=== PATIENT | male | born 1975 | race Caucasian/White ===

== ENCOUNTER 2019-08-31 17:01 | Inpatient (IN) | payer OTHER ==
[2019-08-31 17:42] VITALS: BMI 25.5
--- NOTE | 2019-08-31 18:38 | BHS.RME ---
Substance Use & Tx History - Substance Use History Heroin Substance amount: 1 bundle Frequency of use: Daily Substance route: Injection (ex: intravenous or skin popping) (UE) - Last Treatment Date of last treatment: " a while ago " Where was last treatment: Detox Physical/Psych/Mental Status - Behavior Eye Contact: Normal - Cooperativeness Cooperativeness: Cooperative - Thinking Thought Processes: Logical - Physical Health Problems Is patient presently having any pain?: No Does patient presently have any injuries (include location): No Does patient currently have a fever: No COWS - Scale Resting Pulse: 0= [place] 80 or Below Sweatin= Chills/Flushing Restless Observation: 1= Difficult to Sit Still Pupil Size: 0= Normal to Room Light Bone or Joint Aches: 2= Severe Diffuse Aches Runny Nose/ Eye Tearin= Runny Nose/Eyes GI Upset > 30mins: 2= Nausea/Diarrhea Tremor Observation: 0= None Yawning Observation: 0= None Anxiety or Irritability: 2=Irritable/Anxious Goose Flesh Skin: 0=Smooth Skin COWS Score: 10
--- NOTE | 2019-08-31 18:42 | HP ---
COWS - Scale Resting Pulse: 0= [place] 80 or Below Sweatin= Chills/Flushing Restless Observation: 1= Difficult to Sit Still Pupil Size: 0= Normal to Room Light Bone or Joint Aches: 2= Severe Diffuse Aches Runny Nose/ Eye Tearin= Runny Nose/Eyes GI Upset > 30mins: 2= Nausea/Diarrhea Tremor Observation: 0= None Yawning Observation: 0= None Anxiety or Irritability: 2=Irritable/Anxious Goose Flesh Skin: 0=Smooth Skin COWS Score: 10 CIWA Score - Admission Criteria OASAS Guidelines: Admission for Medically Managed Detox: Requires at least one of the followin. CIWA greater than 12 2. Seizures within the past 24 hours 3. Delirium tremens within the past 24 hours 4. Hallucinations within the past 24 hours 5. Acute intervention needed for co occurring medical disorder 6. Acute intervention needed for co occurring psychiatric disorder 7. Severe withdrawal that cannot be handled at a lower level of care (continued vomiting, continued diarrhea, abnormal vital signs) requiring intravenous medication and/or fluids 8. Admitting History and Physical - Smoking History Smoking history: Current every day smoker Have you smoked in the past 12 months: Yes Aproximately how many cigarettes per day: 5 - Alcohol/Substance Use Hx Alcohol Use: Yes (drinks 4-5 dollar shots of vodka (with Xanax) once weekly) Admission ROS [facility] - HPI Allergies/Adverse Reactions: Allergies Allergy/AdvReac Type Severity Reaction Status Date / Time No Known Allergies Allergy Verified 08/31/19 19:12 History of Present Illness: 43 y.o. male requesting detox from heroin use , reports use x 5 years , latest use today 1 bag , daily use 1 bundle via IV in UE , needles from the exchange , denies sharing , occasional re-using , abscess in the past . OD x 3 most recently 2 mo ago , Narcan by EMS . MMTP - " long time ago " mtd - reports illicit use cocaine - 100 $ / day IV x 2-3 years PMHX : asthma since childhood , hospitalized , intubated in 2006 PSHX : denies PSych : denies Exam Limitations: Clinical Condition - Review of Systems Constitutional: Loss of Appetite EENT: reports: See HPI Respiratory: reports: See HPI Cardiac: reports: See HPI GI: reports: Nausea, Poor Appetite : reports: No Symptoms Reported Musculoskeletal: reports: Muscle Pain Integumentary: reports: See HPI Neuro: reports: No Symptoms reported Endocrine: reports: No Symptoms Reported Hematology: reports: No Symptoms Reported Psychiatric: reports: Orientated x3, Depressed Patient History - Patient Medical History Hx Anemia: No Hx Asthma: Yes Hx Chronic Obstructive Pulmonary Disease (COPD): No Hx Cancer: No Hx Cardiac Disorders: No Hx Congestive Heart Failure: No Hx Hypertension: No Hx Hypercholesterolemia: No HX Cerebrovascular Accident: No Hx Seizures: No Hx Diabetes: No Hx Gastrointestinal Disorders: No Hx Genitourinary Disorders: No Hx Sexually Transmitted Disorders: No Hx Renal Disease (ESRD): No Hx Thyroid Disease: No Hx Human Immunodeficiency Virus (HIV): No (NEGATIVE HX) Hx Hepatitis C: No Hx Depression: Yes Hx Suicide Attempt: No Hx Schizophrenia: No - Patient Surgical History Past Surgical History: No - Smoking Cessation Smoking history: Current every day smoker Have you smoked in the past 12 months: Yes Aproximately how many cigarettes per day: 5 Hx Chewing Tobacco Use: No Initiated information on smoking cessation: No - Substances abused Heroin Substance route: Injection Frequency: Daily Amount used: 10 bags Age of first use: 18 Date of last use: 08/30/19 Admission Physical Exam BHS - Vital Signs Vital Signs: Vital Signs - 24 hr 08/31/19 17:40 Temperature 97.2 F L Pulse Rate 67 Respiratory 18 Rate Blood Pressure 101/64 - Physical General Appearance: Yes: Disheveled, Moderate Distress, Irritable, Anxious HEENTM: Yes: EOMI, Hearing grossly Normal, Normocephalic, Normal Voice Respiratory: Yes: Decreased Breath Sounds, No Accessory Muscle Use, Wheezing (throuhgout lung davis) Neck: Yes: No masses,lesions,Nodules, Trachea in good position Cardiology: Yes: Regular Rhythm, Regular Rate, S1, S2 Abdominal: Yes: Non Tender, Soft Musculoskeletal: Yes: Gait Steady Extremities: Yes: Normal Range of Motion, Non-Tender Neurological: Yes: Alert, Motor Strength 5/5 Integumentary: Yes: Warm, Erythema (left hand), Track Ac - Diagnostic (1) Opioid dependence Current Visit: Yes Status: Chronic Qualifiers: Substance use status: uncomplicated Qualified Code(s): F11.20 - Opioid dependence, uncomplicated Breathalyzer - Breathalyzer Breathalyzer: 0 Urine Drug Screen - Test Device Lot number: [id number] Expiration date: 11/06/20 - Control Is test valid?: Yes - Results Drug screen NEGATIVE: No Urine drug screen results: ANGELINE-Cocaine, FEN-Fentanyl, MOP-Opiates, MTD-Methadone Inpatient Rehab Admission - Rehab Decision to Admit Inpatient rehab admission?: No
[2019-08-31] MEDS ORDERED: MENTHOL/PHENOL 1 EACH UD MM PRN (18:45)
[2019-08-31] MEDS ORDERED: IBUPROFEN 400 MG TABLET (FP) PO PRN (18:45)
[2019-08-31] MEDS ORDERED: BISMUTH SUBSALICYLATE 524 MG/30 ML UD PO PRN (18:45)
[2019-08-31] MEDS ORDERED: NICOTINE POLACRILEX 2 MG GUM BUC PRN (18:45)
[2019-08-31] MEDS ORDERED: ACETAMINOPHEN 325 MG TABLET (FP) PO PRN ×2 (18:45)
[2019-08-31] MEDS ORDERED: MAGNESIUM HYDROX 2400MG/30ML ORAL SUSPENSION 30 ML CUP PO PRN (18:45)
[2019-08-31] MEDS ORDERED: ALBUTEROL SO4 2.5/IPRATROPIUM 0.5 INH SOL 3 ML VIAL.NEB. NEB ONE (18:45)
[2019-08-31] MEDS ORDERED: MAG HYDROX/AL HYDROX/SIMETH 30 ML UNIT-DOSE CUP PO PRN (18:45)
[2019-08-31] MEDS ORDERED: MAGNESIUM CITRATE 300 ML BOTTLE PO PRN (18:45)
[2019-08-31] MEDS ORDERED: METHADONE HCL 10 MG TABLET (FOR DETOX USE ONLY) PO ONE ×2 (18:47→19:30)
[2019-08-31] MEDS ORDERED: ALBUTEROL SO4 0.083% IH SOL 2.5 MG/3 ML VIAL.NEB. NEB PRN (18:48)
[2019-08-31] MEDS: THIAMINE HCL 100 MG TABLET (FP) PO SCH (23:06)
[2019-08-31] MEDS: MELATONIN 5 MG TABLETS PO SCH (23:06)
[2019-08-31] MEDS: ALBUTEROL SO4 HFA INHALER IH SCH (23:06)
[2019-09-01] MEDS ORDERED: METHADONE HCL 10 MG TABLET (FOR DETOX USE ONLY) ONE (09:45)
[2019-09-01] MEDS ORDERED: METHADONE HCL 5 MG TABLET (FOR DETOX USE ONLY) ONE (09:45)
[2019-09-01] MEDS ORDERED: METHADONE (DETOX) 20 MG, METHADONE (DETOX) 5 MG PO ONE (10:00)
--- NOTE | 2019-09-01 10:11 | PN ---
BHS COWS - Scale Resting Pulse: 0= [place] 80 or Below Sweatin= No chills or Flushing Restless Observation: 1= Difficult to Sit Still Pupil Size: 1= Pupils >than Normal Bone or Joint Aches: 2= Severe Diffuse Aches Runny Nose/ Eye Tearin= Nasal Congestion GI Upset > 30mins: 2= Nausea/Diarrhea Tremor Observation of Outstretched Hands: 2= Slight Tremor Visible Yawning Observation: 2= >3x During Session Anxiety or Irritability: 2=Irritable/Anxious Goose Flesh Skin: 0=Smooth Skin COWS Score: 13 S Progress Note (SOAP) Subjective: alert,irritable,anxious,interrupted sleep,pain in the body,tremor,nausea Objective: 09/01/19 10:08 Vital Signs Temperature 97.7 F 09/01/19 08:55 Pulse Rate 74 09/01/19 08:55 Respiratory Rate 18 09/01/19 08:55 Blood Pressure 113/72 09/01/19 08:55 O2 Sat by Pulse Oximetry (%) 96 09/01/19 05:00 labs pending Assessment: 09/01/19 10:09 withdrawal symptom Plan: continue detox methadone regimen,valium 10 mgs po q 4hrs prn for 72 hrs
[2019-09-01 10:45] LABS: HEMATOCRIT 41.3 % (35.4-49); HEMOGLOBIN 13.5 GM/dL (11.7-16.9); MCHC 32.8 g/dl (32.0-35.9); MEAN CELL VOLUME 97.7 fl (80-96); MEAN PLT VOLUME 9.1 fl (7.5-11.1); PLATELET COUNT 219 K/MM3 (134-434); RBC 4.22 M/mm3 (4.00-5.60); RDW 12.7 % (11.9-15.9); WHITE BLOOD COUNT 6.6 K/mm3 (4.0-10.0)
[2019-09-01] MEDS: PRENATAL VITAMINS W/ FOLIC ACID TABLET (FP) PO SCH (10:57)
[2019-09-01 11:00] LABS: ALBUMIN 3.5 g/dl (3.4-5.0); CREATININE 0.9 mg/dL (0.55-1.3); POTASSIUM 4.1 mmol/L (3.5-5.1)
[2019-09-01] MEDS: ALBUTEROL SO4 HFA INHALER IH SCH ×4 (11:00→21:38)
[2019-09-01 11:02] LABS: BILIRUBIN,TOTAL 0.6 mg/dL (0.2-1); TOT PROT 6.5 g/dl (6.4-8.2)
[2019-09-01] MEDS: diazePAM 5 MG TABLET PO PRN ×2 (18:27→22:31)
[2019-09-01] MEDS: cloNIDine HCL 0.1 MG TABLET PO PRN (21:38)
[2019-09-01] MEDS: MELATONIN 5 MG TABLETS PO SCH (21:38)
[2019-09-01] MEDS: THIAMINE HCL 100 MG TABLET (FP) PO SCH (21:38)
[2019-09-02] MEDS: METHOCARBAMOL 500 MG TABLET PO PRN ×2 (00:33→10:05)
[2019-09-02] MEDS: diazePAM 5 MG TABLET PO PRN ×4 (02:33→22:18)
[2019-09-02] MEDS: cloNIDine HCL 0.1 MG TABLET PO PRN (05:07)
[2019-09-02] MEDS ORDERED: METHADONE HCL 10 MG TABLET (FOR DETOX USE ONLY) PO ONE (10:00)
[2019-09-02] MEDS: PRENATAL VITAMINS W/ FOLIC ACID TABLET (FP) PO SCH (10:03)
[2019-09-02] MEDS: ALBUTEROL SO4 HFA INHALER IH SCH ×4 (10:03→22:40)
--- NOTE | 2019-09-02 10:40 | PN ---
S COWS - Scale Resting Pulse: 0= RI 80 or Below Sweatin= No chills or Flushing Restless Observation: 1= Difficult to Sit Still Pupil Size: 1= Pupils >than Normal Bone or Joint Aches: 2= Severe Diffuse Aches Runny Nose/ Eye Tearin= Nasal Congestion GI Upset > 30mins: 2= Nausea/Diarrhea Tremor Observation of Outstretched Hands: 2= Slight Tremor Visible Yawning Observation: 1= 1-2x During Session Anxiety or Irritability: 2=Irritable/Anxious Goose Flesh Skin: 0=Smooth Skin COWS Score: 12 S Progress Note (SOAP) Subjective: alert,irritable,anxious,interrupted sleep,pain in the body and back,insomnia, Objective: 09/02/19 10:38 Vital Signs Temperature 97.7 F 09/02/19 08:41 Pulse Rate 79 09/02/19 08:41 Respiratory Rate 17 09/02/19 08:41 Blood Pressure 143/70 09/02/19 08:41 O2 Sat by Pulse Oximetry (%) 99 09/02/19 06:24 Laboratory Last Values WBC 6.6 K/mm3 (4.0-10.0) 09/01/19 08:00 RBC 4.22 M/mm3 (4.00-5.60) 09/01/19 08:00 Hgb 13.5 GM/dL (11.7-16.9) 09/01/19 08:00 Hct 41.3 % (35.4-49) 09/01/19 08:00 MCV 97.7 fl (80-96) H 09/01/19 08:00 MCH 32.0 pg (25.7-33.7) 09/01/19 08:00 MCHC 32.8 g/dl (32.0-35.9) 09/01/19 08:00 RDW 12.7 % (11.9-15.9) 09/01/19 08:00 Plt Count 219 K/MM3 (134-434) 09/01/19 08:00 MPV 9.1 fl (7.5-11.1) 09/01/19 08:00 Sodium 138 mmol/L (136-145) 09/01/19 08:00 Potassium 4.1 mmol/L (3.5-5.1) 09/01/19 08:00 Chloride 103 mmol/L (98-107) 09/01/19 08:00 Carbon Dioxide 28 mmol/L (21-32) 09/01/19 08:00 Anion Gap 7 MMOL/L (8-16) L 09/01/19 08:00 BUN 9.0 mg/dL (7-18) 09/01/19 08:00 Creatinine 0.9 mg/dL (0.55-1.3) 09/01/19 08:00 Est GFR (CKD-EPI)AfAm 121.67 09/01/19 08:00 Est GFR (CKD-EPI)NonAf 104.98 09/01/19 08:00 Random Glucose 94 mg/dL (74-106) 09/01/19 08:00 Calcium 9.0 mg/dL (8.5-10.1) 09/01/19 08:00 Total Bilirubin 0.6 mg/dL (0.2-1) 09/01/19 08:00 AST 10 U/L (15-37) L 09/01/19 08:00 ALT 16 U/L (13-61) 09/01/19 08:00 Alkaline Phosphatase 70 U/L (45-117) 09/01/19 08:00 Total Protein 6.5 g/dl (6.4-8.2) 09/01/19 08:00 Albumin 3.5 g/dl (3.4-5.0) 09/01/19 08:00 Syphilis Serology Non-reactive (NONREACTIVE) 09/01/19 08:00 COVID-19 (RADHA) Not detected (Not Detected) 09/01/19 09:30 Assessment: 09/02/19 10:38 withdrawal symptom Plan: continue detox methadone regimen,valium 10 mgs po q 4 hrs prn,psychiatric consultation fos anxiety,depression and insomnia
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
[2019-09-02] MEDS: THIAMINE HCL 100 MG TABLET (FP) PO SCH (22:18)
[2019-09-02] MEDS: SUVOREXANT 10 MG TABLET PO PRN (22:19)
[2019-09-02] MEDS: MELATONIN 5 MG TABLETS PO SCH (22:39)
[2019-09-03] MEDS: diazePAM 5 MG TABLET PO PRN ×4 (02:24→21:37)
[2019-09-03] MEDS ORDERED: METHADONE HCL 5 MG TABLET (FOR DETOX USE ONLY) ONE ×2 (09:02→09:05)
[2019-09-03] MEDS ORDERED: METHADONE HCL 10 MG TABLET (FOR DETOX USE ONLY) ONE (09:03)
[2019-09-03] MEDS ORDERED: METHADONE (DETOX) 10 MG, METHADONE (DETOX) 5 MG PO ONE (10:00)
[2019-09-03] MEDS: PRENATAL VITAMINS W/ FOLIC ACID TABLET (FP) PO SCH (10:07)
[2019-09-03] MEDS: ALBUTEROL SO4 HFA INHALER IH SCH ×4 (10:10→23:00)
--- NOTE | 2019-09-03 15:28 | PN ---
BHS COWS - Scale Resting Pulse: 0= [place] 80 or Below Sweatin= Chills/Flushing Restless Observation: 1= Difficult to Sit Still Pupil Size: 0= Normal to Room Light Bone or Joint Aches: 2= Severe Diffuse Aches Runny Nose/ Eye Tearin= None GI Upset > 30mins: 0= None Tremor Observation of Outstretched Hands: 2= Slight Tremor Visible Yawning Observation: 1= 1-2x During Session Anxiety or Irritability: 2=Irritable/Anxious Goose Flesh Skin: 0=Smooth Skin COWS Score: 9 BHS Progress Note (SOAP) Subjective: Fatigue, Body Aches, Tremors. Objective: Patient A & O X 2 (Uncertain About Current Day/Date). 09/03/19 15:25 Vital Signs Temperature 97.1 F L 09/03/19 12:42 Pulse Rate 74 09/03/19 12:42 Respiratory Rate 20 09/03/19 12:42 Blood Pressure 106/69 09/03/19 12:42 O2 Sat by Pulse Oximetry (%) 98 09/03/19 12:42 Laboratory Tests 09/01/19 09/01/19 09/01/19 08:00 08:00 08:00 WBC 6.6 RBC 4.22 Hgb 13.5 Hct 41.3 MCV 97.7 H MCH 32.0 MCHC 32.8 RDW 12.7 Plt Count 219 MPV 9.1 Sodium 138 Potassium 4.1 Chloride 103 Carbon Dioxide 28 Anion Gap 7 L BUN 9.0 Creatinine 0.9 Est GFR (CKD-EPI)AfAm 121.67 Est GFR (CKD-EPI)NonAf 104.98 Random Glucose 94 Calcium 9.0 Total Bilirubin 0.6 AST 10 L ALT 16 Alkaline Phosphatase 70 Total Protein 6.5 Albumin 3.5 Syphilis Serology Non-reactive COVID-19 (RADHA) 09/01/19 09:30 WBC RBC Hgb Hct MCV MCH MCHC RDW Plt Count MPV Sodium Potassium Chloride Carbon Dioxide Anion Gap BUN Creatinine Est GFR (CKD-EPI)AfAm Est GFR (CKD-EPI)NonAf Random Glucose Calcium Total Bilirubin AST ALT Alkaline Phosphatase Total Protein Albumin Syphilis Serology COVID-19 (RADHA) Not detected Lab Results Noted. 09/03/19 15:27 Assessment: 09/03/19 15:26 WITHDRAWAL SYMPTOMS. Plan: Continue Detox.
[2019-09-03] MEDS: SUVOREXANT 10 MG TABLET PO PRN (21:36)
[2019-09-03] MEDS: THIAMINE HCL 100 MG TABLET (FP) PO SCH (21:37)
[2019-09-03] MEDS: MELATONIN 5 MG TABLETS PO SCH (21:37)
[2019-09-04] MEDS: diazePAM 5 MG TABLET PO PRN (01:56)
[2019-09-04] MEDS ORDERED: METHADONE HCL 10 MG TABLET (FOR DETOX USE ONLY) PO ONE (10:00)
[2019-09-04] MEDS: PRENATAL VITAMINS W/ FOLIC ACID TABLET (FP) PO SCH (10:43)
[2019-09-04] MEDS: ALBUTEROL SO4 HFA INHALER IH SCH ×4 (10:44→22:31)
--- NOTE | 2019-09-04 14:01 | PN ---
BHS COWS - Scale Resting Pulse: 0= MO 80 or Below Sweatin= Chills/Flushing Restless Observation: 0= Sits Still Pupil Size: 0= Normal to Room Light Bone or Joint Aches: 0= None Runny Nose/ Eye Tearin= Runny Nose/Eyes GI Upset > 30mins: 0= None Tremor Observation of Outstretched Hands: 1= Tremor [place], Not Seen Yawning Observation: 1= 1-2x During Session Anxiety or Irritability: 1=Feels Anxious/Irritable Goose Flesh Skin: 0=Smooth Skin COWS Score: 6 BHS Progress Note (SOAP) Subjective: Feels 55-60/100 %, sweating, chills, tremor, interrupted sleep, yawning, teary eyes, body ache, hamstring pain Objective: 09/04/19 14:00 Last Vital Signs Temp Pulse Resp BP Pulse Ox 97.1 F L 75 17 111/62 98 09/04/19 12:19 09/04/19 12:19 09/04/19 12:19 09/04/19 12:19 09/04/19 12:19 Laboratory Tests 09/01/19 09/01/19 09/01/19 08:00 08:00 08:00 WBC 6.6 RBC 4.22 Hgb 13.5 Hct 41.3 MCV 97.7 H MCH 32.0 MCHC 32.8 RDW 12.7 Plt Count 219 MPV 9.1 Sodium 138 Potassium 4.1 Chloride 103 Carbon Dioxide 28 Anion Gap 7 L BUN 9.0 Creatinine 0.9 Est GFR (CKD-EPI)AfAm 121.67 Est GFR (CKD-EPI)NonAf 104.98 Random Glucose 94 Calcium 9.0 Total Bilirubin 0.6 AST 10 L ALT 16 Alkaline Phosphatase 70 Total Protein 6.5 Albumin 3.5 Syphilis Serology Non-reactive COVID-19 (RADHA) 09/01/19 09:30 WBC RBC Hgb Hct MCV MCH MCHC RDW Plt Count MPV Sodium Potassium Chloride Carbon Dioxide Anion Gap BUN Creatinine Est GFR (CKD-EPI)AfAm Est GFR (CKD-EPI)NonAf Random Glucose Calcium Total Bilirubin AST ALT Alkaline Phosphatase Total Protein Albumin Syphilis Serology COVID-19 (RADHA) Not detected Labs reviewed Assessment: 09/04/19 14:00 Withdrawal sxs Plan: Continue detox Encouraged PO water intake Schedule for discharge tomorrow Consider holding discharge for another day if still having increased sxs
[2019-09-04] MEDS ORDERED: hydrOXYzine PAMOATE 50 MG CAPSULE (FP) PO PRN ×2 (20:00)
[2019-09-04] MEDS: MELATONIN 5 MG TABLETS PO SCH (22:00)
[2019-09-04] MEDS: THIAMINE HCL 100 MG TABLET (FP) PO SCH (22:00)
[2019-09-05] MEDS ORDERED: METHADONE HCL 5 MG TABLET (FOR DETOX USE ONLY) PO ONE (06:00)
--- NOTE | 2019-09-05 09:16 | PN ---
BHS COWS - Scale Resting Pulse: 0= [place] 80 or Below Sweatin= No chills or Flushing Restless Observation: 0= Sits Still Pupil Size: 0= Normal to Room Light Bone or Joint Aches: 1= Mild Discomfort Runny Nose/ Eye Tearin= None GI Upset > 30mins: 0= None Tremor Observation of Outstretched Hands: 0= None Yawning Observation: 0= None Anxiety or Irritability: 0= None Goose Flesh Skin: 0=Smooth Skin COWS Score: 1 BHS Progress Note (SOAP) Subjective: alert,no complaint Objective: 09/05/19 09:19 Vital Signs Temperature 97.5 F L 09/05/19 05:55 Pulse Rate 66 09/05/19 05:55 Respiratory Rate 18 09/05/19 06:43 Blood Pressure 113/73 09/05/19 05:55 O2 Sat by Pulse Oximetry (%) 96 09/05/19 05:55 09/05/19 09:19 detox completed,no withdrawal symptom 09/05/19 09:21 Assessment: 09/05/19 09:22 no withdrawal symptom Plan: stable for discharge today,follow up with after care program as arrangement
[2019-09-05 09:20] VITALS: BP 101/65; PULSE 80; TEMP 97.8
--- NOTE | 2019-09-05 09:27 | DS ---
[facility] Detox Discharge Summary Admission Date: 08/31/19 Discharge Date: 09/05/19 - History Present History: Cannabis Dependence, Cocaine Dependence, Opioid Dependence Additional Comments: alert,oriented x3 ambulation on the unit lung clear,no wheezing abdomen soft,no distension,no pain or tenderness,bowel sound active patient is stable,no withdrawal symptom follow up with after care program as arrangement Pertinent Past History: asthma - Physical Exam Results Vital Signs: Vital Signs Temperature 97.8 F 09/05/19 08:37 Pulse Rate 80 09/05/19 08:37 Respiratory Rate 18 09/05/19 08:37 Blood Pressure 101/65 09/05/19 08:37 O2 Sat by Pulse Oximetry (%) 96 09/05/19 05:55 Pertinent Admission Physical Exam Findings: withdrawal signs and symptom Laboratory Last Values WBC 6.6 K/mm3 (4.0-10.0) 09/01/19 08:00 RBC 4.22 M/mm3 (4.00-5.60) 09/01/19 08:00 Hgb 13.5 GM/dL (11.7-16.9) 09/01/19 08:00 Hct 41.3 % (35.4-49) 09/01/19 08:00 MCV 97.7 fl (80-96) H 09/01/19 08:00 MCH 32.0 pg (25.7-33.7) 09/01/19 08:00 MCHC 32.8 g/dl (32.0-35.9) 09/01/19 08:00 RDW 12.7 % (11.9-15.9) 09/01/19 08:00 Plt Count 219 K/MM3 (134-434) 09/01/19 08:00 MPV 9.1 fl (7.5-11.1) 09/01/19 08:00 Sodium 138 mmol/L (136-145) 09/01/19 08:00 Potassium 4.1 mmol/L (3.5-5.1) 09/01/19 08:00 Chloride 103 mmol/L (98-107) 09/01/19 08:00 Carbon Dioxide 28 mmol/L (21-32) 09/01/19 08:00 Anion Gap 7 MMOL/L (8-16) L 09/01/19 08:00 BUN 9.0 mg/dL (7-18) 09/01/19 08:00 Creatinine 0.9 mg/dL (0.55-1.3) 09/01/19 08:00 Est GFR (CKD-EPI)AfAm 121.67 09/01/19 08:00 Est GFR (CKD-EPI)NonAf 104.98 09/01/19 08:00 Random Glucose 94 mg/dL (74-106) 09/01/19 08:00 Calcium 9.0 mg/dL (8.5-10.1) 09/01/19 08:00 Total Bilirubin 0.6 mg/dL (0.2-1) 09/01/19 08:00 AST 10 U/L (15-37) L 09/01/19 08:00 ALT 16 U/L (13-61) 09/01/19 08:00 Alkaline Phosphatase 70 U/L (45-117) 09/01/19 08:00 Total Protein 6.5 g/dl (6.4-8.2) 09/01/19 08:00 Albumin 3.5 g/dl (3.4-5.0) 09/01/19 08:00 Syphilis Serology Non-reactive (NONREACTIVE) 09/01/19 08:00 COVID-19 (RADHA) Not detected (Not Detected) 09/01/19 09:30 Vital Signs Temperature 97.8 F 09/05/19 08:37 Pulse Rate 80 09/05/19 08:37 Respiratory Rate 18 09/05/19 08:37 Blood Pressure 101/65 09/05/19 08:37 O2 Sat by Pulse Oximetry (%) 96 09/05/19 05:55 - Treatment Hospital Course: Detox Protocol Followed, Detoxed Safely, Responded well, Discha rged Condition Good Patient has Accepted a Rehab Referral to: declined - Medication Discharge Medications: Ambulatory Orders Azithromycin [Zithromax Z-CHILANGO (5 DAYS) -] 250 mg PO ASDIR 04/07/14 traZODone HCL [Desyrel -] 100 mg PO HS 04/07/14 Albuterol Sulfate [Proair Hfa -] 2 inh PO QID #1 hfa.aer.ad 05/04/14 Buspirone HCl [Buspar -] 10 mg PO BID #60 tablet 05/04/14 Docusate Sodium [Colace -] 100 mg PO TID #90 capsule 05/04/14 Ibuprofen [Motrin -] 600 mg PO Q6H PRN #30 tablet 05/04/14 Pantoprazole Sodium [Protonix -] 40 mg PO DAILY #30 tablet.ec 05/04/14 Quetiapine Fumarate "Xr" [Seroquel XR] 150 mg PO HS@2000 #30 tablet 05/04/14 Albuterol Sulfate Inhaler - [Ventolin HFA Inhaler -] 2 puff IH QID PRN #1 inhaler 09/05/19 - Diagnosis (1) Opioid dependence with withdrawal Current Visit: Yes Status: Acute (2) Asthma Current Visit: No Status: Acute (3) Cannabis dependence Current Visit: No Status: Acute (4) Cocaine dependence Current Visit: No Status: Acute (5) Mood disorder Current Visit: No Status: Chronic (6) Nicotine dependence Current Visit: No Status: Chronic (7) Low back pain Current Visit: No Status: Acute - AMA Did Patient Leave Against Medical Advice: No
--- NOTE | 2019-09-05 09:40 | PN ---
BHS Progress Note Note: total time spending on discharge 35 minutes
== END 2019-09-05 09:10 | disposition home or self-care (01) | DRG 774 ==
LOC: YASAS 17:01 → UNDOADMIN 17:35 → Y3E 17:35 → Y6N 19:14
PROVIDERS: ADMIT Allergy & Immunology; ATTEND Allergy & Immunology
PROC: HZ2ZZZZ Detoxification Services for Substance Abuse Treatment (ICD-10-PCS; principal; 2019-08-31)
DX: F10.230 Alcohol dependence with withdrawal, uncomplicated (principal); F14.20 Cocaine dependence, uncomplicated; F12.20 Cannabis dependence, uncomplicated; F17.210 Nicotine dependence, cigarettes, uncomplicated; F39 Unspecified mood [affective] disorder; F19.282 Other psychoactive substance dependence with psychoactive substance-induced sleep disorder; F43.10 Post-traumatic stress disorder, unspecified; J45.909 Unspecified asthma, uncomplicated; M54.5 Low back pain; Z62.810 Personal history of physical and sexual abuse in childhood
CPT/HCPCS: 36415; 71046-TC-FY; 80053; 85027; 86780; 94640; J0735; U0003